=== PATIENT | female | born 2000 | race African-American/Black ===

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

== ENCOUNTER 2020-01-29 17:23 | Emergency (ER) | payer MEDICAID ==
[~2020-01-29] VITALS: Ht 165.1 cm; Wt 84.4 kg
[2020-01-29 17:30] VITALS: BP 102/66
[2020-01-29] MEDS ORDERED: cefTRIAXone 1 GM in NS 55 ML IVPB ONE (17:45)
[2020-01-29] MEDS ORDERED: Omnipaque-300 100ml vial INJ PRN (17:45)
[2020-01-29] MEDS ORDERED: Doxycycline Monohydrate 100mg ORAL ONE (18:00)
[2020-01-29 18:04] LABS: BASOPHILS % (AUTO) 0.7 % (0.0-2.0); EOSINOPHILS % (AUTO) 1.9 % (0.0-3.0); HEMATOCRIT 38.4 % (37.0-47.0); LYMPHOCYTES % (AUTO) 19.4 % (20.0-45.0); MEAN CORPUSCULAR VOLUME 88 FL (80-99); PLATELET COUNT 198 K/UL (150-450); RED BLOOD COUNT 4.38 M/UL (4.20-5.40); RED CELL DISTRIBUTION WIDTH 13.1 % (11.6-14.8); WHITE BLOOD COUNT 11.2 K/UL (4.8-10.8)
[2020-01-29 18:08] LABS: APPEARANCE,URINE SLIGHTLY CLOUDY; BILIRUBIN, URINE NEGATIVE (NEGATIVE); COLOR,URINE PALE YELLOW; GLUCOSE, URINE (UA) NEGATIVE (NEGATIVE); KETONES,URINE NEGATIVE (NEGATIVE); LEUKOCYTE ESTERASE ,URINE 3+ (NEGATIVE); NITRITE,URINE NEGATIVE (NEGATIVE); PH,URINE 7 (4.5-8.0); PROTEIN,URINE NEGATIVE (NEGATIVE); UROBILINOGEN,URINE NORMAL MG/DL (0.0-1.0)
[2020-01-29 18:18] LABS: ANION GAP 9 mmol/L (5-15); BLOOD UREA NITROGEN 6 mg/dL (7-18); CALCIUM 8.8 MG/DL (8.5-10.1); CARBON DIOXIDE 27 MMOL/L (21-32); CHLORIDE 105 MMOL/L (98-107); CREATININE 0.8 MG/DL (0.55-1.30); POTASSIUM 3.9 MMOL/L (3.5-5.1); SODIUM 140 MMOL/L (136-145)
[2020-01-29 18:23] LABS: ALANINE AMINOTRANSFERASE 23 U/L (12-78); ALBUMIN 3.8 G/DL (3.4-5.0); ALBUMIN/GLOBULIN RATIO 1.1 (1.0-2.7); ALKALINE PHOSPHATASE 75 U/L (46-116); ASPARTATE AMINO TRANSFERASE 21 U/L (15-37); BILIRUBIN,TOTAL 0.7 MG/DL (0.2-1.0)
--- NOTE | 2020-01-29 18:26 | Emergency Room Report ---
History of Present Illness General Chief Complaint: Skin Rash/Abscess Source: Patient Present Illness HPI 20-year-old female with no significant past medical history here complaining of 2 days of painful rash in the right inguinal fold. Denies any fall or injury. Denies any pus drainage. Denies any history of hernia. Denies any fever and chills, diffuse abdominal pain, nausea vomiting, urinary frequency and urgency. Reports that she is sexually active and was last checked 2 weeks ago. Denies any vaginal discharge. Denies any pelvic pain. Patient was seen at the pain clinic and was sent to the ER due to cellulitis the area however no cellulitis noted. Lymphadenopathy noted in the area. Denies . 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 Patient History Past Medical History: see triage record Past Surgical History: none Pertinent Family History: none Last Menstrual Period: Now: No Immunizations: UTD Reviewed Nursing Documentation: PMH: Agreed; PSxH: Agreed Nursing Documentation-PMH Past Medical History: No History, Except For Hx Asthma: Yes Review of Systems All Other Systems: negative except mentioned in HPI Physical Exam Vital Signs Date Time Temp Pulse Resp B/P (MAP) Pulse Ox O2 Delivery O2 Flow Rate FiO2 01/29/20 17:25 98.2 63 20 96/67 (77) 99 Room Air Sp02 EP Interpretation: reviewed, normal General Appearance: no apparent distress, alert, GCS 15, non-toxic Head: normocephalic, atraumatic Eyes: bilateral eye normal inspection, bilateral eye PERRL ENT: hearing grossly normal, normal pharynx, no angioedema, normal voice Neck: full range of motion, supple/symm/no masses Respiratory: chest non-tender, lungs clear, normal breath sounds, no rhonchi, speaking full sentences Cardiovascular #1: regular rate, rhythm, no edema Cardiovascular #2: 2+ femoral (R), 2+ femoral (L) Gastrointestinal: normal bowel sounds, non tender, soft, non-distended, no guarding, no rebound, other - Lymphadenopathy right inguinal fold Rectal: deferred Genitourinary: no CVA tenderness Musculoskeletal: back normal Neurologic: alert, motor strength/tone normal, oriented x3, sensory intact, responsive, speech normal Psychiatric: normal inspection, judgement/insight normal Skin: no rash Lymphatic: inguinal node tender (R) Procedures Incision and Drainage Incision and Drainage : Consent: Verbal Site: right inguinal Blade Size: 11 I & D Procedure: betadine prep Wound Location: pelvis - right inguinal Wound's Depth, Shape: superficial Wound Length (cm): 2 Wound Explored: clean Anesthesia: 1% Lidocaine Volume Anesthetic (ccs): 10 Splint Applied?: No Sling Applied?: No Patient Tolerated: Well Complications: None Ultrasound Ultrasound : Consent: Verbal Ultrasound: normal Patient Tolerated: Well Complications: None Progress Use of this left femoral artery and vein in order to avoid that area from cutting Medical Decision Making PA Attestation All my diagnosis and treatment plans were reviewed ad discussed with my supervising physician Dr. Hudson Diagnostic Impression: Primary Impression: Inguinal abscess ER Course 20-year-old female with no significant past medical history here complaining of 2 days of painful rash in the right inguinal fold. Denies any fall or injury. Denies any pus drainage. Denies any history of hernia. Denies any fever and chills, diffuse abdominal pain, nausea vomiting, urinary frequency and urgency. Reports that she is sexually active and was last checked 2 weeks ago. Denies any vaginal discharge. Denies any pelvic pain. Patient was seen at the pain clinic and was sent to the ER due to cellulitis the area however no cellulitis noted. Lymphadenopathy noted in the area. Denies . No incarcerated nonreducible hernia noted upon palpation of the affected area Ddx considered but are not limited to : Cellulitis, LGV,, PID, hidradenitis suppurativa, superficial infection, abscess Vital signs: are WNL, pt. is afebrile H&PE are most consistent with: Abscess right inguinal ORDERS: CT pelvis with contrast, CBC, CMP, UA, urine test, PT and PTT , lactic acid, keflex, Motrin, Bactrim ED INTERVENTIONS: Rocephin, doxycycline DISCHARGE: At this time pt. is stable for d/c to home. Will provide printed patient care instructions, and any necessary prescriptions. Care plan and follow up instructions have been discussed with the patient prior to discharge. Take medication as directed, follow primary care provider, avoid irritating area, if worsening symptoms return to the emergency room Patient developed for the. Was very scared area patient asked if she could just be discharged with antibiotics and follow-up in 2 to 3 days. At this time patient was able to get minimal pus out patient would not really allow me to make a deeper cut and how to bandage the. Asked patient to start taking the antibiotics right away and return to the emergency room if worsening symptoms. CT/MRI/US Diagnostic Results CT/MRI/US Diagnostic Results : Imaging Test Ordered: CT pelvis with contrast Impression FINDINGS: Bowel: Unremarkable. No obstruction. No mucosal thickening. Appendix: No findings to suggest acute appendicitis. Intraperitoneal space: Trace free fluid in the pelvis, likely physiologic. No free air. Bladder: Unremarkable. No mass. Reproductive: Probable cyst within the right ovary measuring up to 3 cm. Bones/joints: No acute fracture. No dislocation. Soft tissues: Moderate edema with tiny fluid collection measured to 16 mm seen within the soft tissues of the right groin/medial upper thigh suggesting an inflammatory or infectious process to include developing abscess. No soft tissue gas. Vasculature: Unremarkable. No lower abdominal aortic aneurysm. Lymph nodes: Unremarkable. IMPRESSION: 1. Moderate edema with tiny fluid collection measuring up to 16 mm seen within the soft tissues of the right groin/medial upper thigh suggesting an inflammatory or infectious process to include developing abscess. No soft tissue gas. 2. Probable cyst within the right ovary measuring up to 3 cm. Last Vital Signs Date Time Temp Pulse Resp B/P (MAP) Pulse Ox O2 Delivery O2 Flow Rate FiO2 01/29/20 17:25 98.2 63 20 96/67 (77) 99 Room Air Disposition: HOME, SELF-CARE Condition: Stable Scripts Ibuprofen* (MOTRIN*) 600 Mg Tablet 600 MG ORAL Q8H PRN for FOR PAIN, #30 TAB 0 Refills Prov: Theresa Goodwin 01/29/20 Cephalexin* (KEFLEX*) 500 Mg Capsule 500 MG ORAL EVERY 6 HOURS for 7 Days, #28 CAP Prov: Theresa Goodwin 01/29/20 Referrals: NOT CHOSEN IPA/,REFERRING (PCP) Patient Instructions: Abscess Additional Instructions: Take medication as directed, follow-up with your primary care provider, worsening symptoms return to the emergency room. Wound check in 2 to 3 days Theresa Goodwin Jan 29, 2020 18:26
--- NOTE | 2020-01-29 18:56 | Diagnostic Imaging Report ---
EXAM: CT Pelvis With Intravenous Contrast CLINICAL HISTORY: PAIN TECHNIQUE: Axial computed tomography images of the pelvis with intravenous contrast. CTDI is 8.9 mGy and DLP is 375.5 mGy-cm. One or more of the following dose reduction techniques were used: automated exposure control, adjustment of the mA and/or kV according to patient size, use of iterative reconstruction technique. COMPARISON: No relevant prior studies available. FINDINGS: Bowel: Unremarkable. No obstruction. No mucosal thickening. Appendix: No findings to suggest acute appendicitis. Intraperitoneal space: Trace free fluid in the pelvis, likely physiologic. No free air. Bladder: Unremarkable. No mass. Reproductive: Probable cyst within the right ovary measuring up to 3 cm. Bones/joints: No acute fracture. No dislocation. Soft tissues: Moderate edema with tiny fluid collection measured to 16 mm seen within the soft tissues of the right groin/medial upper thigh suggesting an inflammatory or infectious process to include developing abscess. No soft tissue gas. Vasculature: Unremarkable. No lower abdominal aortic aneurysm. Lymph nodes: Unremarkable. IMPRESSION: 1. Moderate edema with tiny fluid collection measuring up to 16 mm seen within the soft tissues of the right groin/medial upper thigh suggesting an inflammatory or infectious process to include developing abscess. No soft tissue gas. 2. Probable cyst within the right ovary measuring up to 3 cm.
[2020-01-29] MEDS ORDERED: Lidocaine 1% Plain 30 ml INJ ONE ×2 (19:12→19:30)
[2020-01-29] MEDS ORDERED: Lidocaine 1% 10mg/ml/EPI 0.01mg/ml 30ml INJ ONE (19:15)
[2020-01-29] MEDS ORDERED: CEPHALEXIN500 MG ORAL (19:29)
[2020-01-29] MEDS ORDERED: IBUPROFEN600 M1 ORAL (19:29)
[2020-01-29] MEDS ORDERED: BACTRIM DS TAB1 EAC1 ORAL (19:49)
[2020-01-29 20:00] VITALS: BP 110/72
== END 2020-01-29 20:00 | disposition home or self-care (01) ==
LOC: EMR 17:47
DX: L02.214 Cutaneous abscess of groin (principal); R59.1 Generalized enlarged lymph nodes
CPT/HCPCS: 10060; 36415; 72193; 80053; 81003; 81025; 83605; 85025; 85610; 85730; 87086; 96365; J0696; J2001; Q9967; Z7502; 99284

== ENCOUNTER 2020-06-09 02:10 | Emergency (ER) | payer MEDICAID ==
[~2020-06-09] VITALS: Ht 167.6 cm; Wt 83.9 kg
[~2020-06-09 02:10] MED LIST changes: +BACTRIM DS TAB1 EAC1 ORAL; +IBUPROFEN600 M1 ORAL
[2020-06-09 02:20] VITALS: BP 103/67
--- NOTE | 2020-06-09 02:20 | NUR ---
ED Nurse Note: Patient walked into ED from home for c/o sore throat, congestion, cough x 3 days. She denies fever, SOB, chest pain, abdominal pain. Breathing is normal and unlabored at this time. AAOX4. Patient also expresses concern that she burned her throat while drinking hot tea for control of symptoms.
--- NOTE | 2020-06-09 02:31 | Emergency Room Report ---
History of Present Illness General Chief Complaint: Sore Throat Source: Patient Present Illness HPI 20-year-old -[place] female with no prior medical history presents with complaint of throat pain x3 days. Patient states that 2 weeks ago she received a dental extraction and was prescribed amoxicillin which she finished 4 days ago. She started to have sinus congestion and cough symptoms for the past 3 days and was self-medicating with hot tea and honey at home. She states she went to go drink tea 3 days ago and is concerned it burned the back of her throat. Denies difficulty swallowing, hoarse voice, stridor, drooling, neck pain, fever, hemoptysis, chest pain, abdominal pain, nausea, headache, photophobia or any other symptoms. Last menstrual period was 10 days ago. 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 Denies sick contacts or recent travel. The patient's symptoms were gradual onset, severity was moderate, duration since 3 days. Quality: Burning Past medical history: Denies Past surgical history: Denies Smoking: Denies Alcohol use: Occasional on the weekends Drug use: Marijuana occasional Review of systems: CONST: No fevers or chills, No night sweats PULMONARY: No productive cough, No shortness of breath CARDIAC: No chest pain, No palpitations GI: No vomiting, No diarrhea , No melena_or_BRBPR : No dysuria, No hematuria, No discharge NEURO: No new_focal_weakness_or_numbness, No confusion, No vision changes 14 point Review of Systems is otherwise negative except per HPI Physical Exam: GENERAL: Awake_alert_ nontoxic, no acute distress Spo2 98% on RA -normal EYES: Extraocular muscles are intact. Conjunctivae clear. Lids without swelling ENT: External nose and ear normal_in_appearance. Oropharynx clear. Head_atraumatic, Moist_oral_mucosa Superficial blisters to the right posterior soft palate. Uvula is midline. No tonsillar exudates or swelling. No hoarse voice. Tolerating oral secretions. No drooling. No stridor NECK: No JVD. No meningismus. No thyromegaly. Supple. Trachea midline RESP: Normal respiratory effort. Symmetric rise. No stridor. Clear_to_auscultation_No_rales_No_wheezes CARDIAC: Regular rate and regular rhytm. No_significant pedal edema. ABDOMEN: Soft. Nondistended. Nontender_No_rebound_or_guarding. MSK: Normal muscle tone, without rigidity. Extremities without asymmetric deformity or swelling. SKIN: Warm and dry. No visible cyanosis or pallor NEUROLOGIC: Alert, oriented x3. Motor_and_sensation_grossly_intact. No truncal ataxia. Gait_normal Psych: Normal mood and affect, normal judgment and insight - COORDINATION OF CARE Case was discussed with: Patient Medical Decision Making/Plan: Differential diagnosis: Upper respiratory infection versus throat burn versus postnasal drip versus pharyngitis versus tonsillitis, doubt deep space neck in fection Patient is afebrile and well-appearing. She is noted to have superficial blistering to the right posterior soft palate. No stridor, hoarse voice, or respiratory distress noted. No submandibular cellulitis or swelling. Airway is intact. Patient able to tolerate water PO challenge No antibiotics indicated. She recently just finished a 10-day course of amoxicillin. Offered off work note, however patient declined. Advised patient to take greater care when drinking hot tea so as to not re-burn/blister herself Advise follow-up with primary care doctor in 2 to 3 days. 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 COVID-19 Screening: Negative COVID-19 COVID-19 Testing Source: [facility] Patient History Last Menstrual Period: 06/03/20 Now: No : 0 Para: 0 Nursing Documentation-[facility] Past Medical History: No History, Except For Hx Asthma: Yes Physical Exam Vital Signs Date Time Temp Pulse Resp B/P (MAP) Pulse Ox O2 Delivery O2 Flow Rate FiO2 06/09/20 02:17 98.4 90 18 103/67 (79) 98 Room Air Sp02 EP Interpretation: reviewed, normal Medical Decision Making Diagnostic Impression: Primary Impression: Throat pain in adult Last Vital Signs Date Time Temp Pulse Resp B/P (MAP) Pulse Ox O2 Delivery O2 Flow Rate FiO2 06/09/20 02:17 98.4 90 18 103/67 (79) 98 Room Air Disposition: HOME, SELF-CARE Admit Decision Time: 02:31 Condition: Stable Referrals: NOT CHOSEN IPA/,REFERRING (PCP) Patient Instructions: Sore Throat Additional Instructions: 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 Follow-up with your doctor sooner if your condition requires a more timely clinical reevaluation. Return to the emergency department immediately if you feel that your condition is worsening or if you have any new or concerning symptoms. Review your discharge instructions and take any prescriptions given as instructed. [facility] PROVIDES FREE OR LOW-COST HEALTH SERVICES TO PEOPLE WHO CAN SHOW PROOF THAT THEY LIVE IN [facility]. TO FIND MORE CLINICS PARTNERED WITH [facility] TO PROVIDE SERVICE, PLEASE CALL . Bernadette Ferris D.O. Jun 09, 2020 02:31
[2020-06-09 02:35] VITALS: BP 104/65
--- NOTE | 2020-06-09 02:35 | NUR ---
ER DISCHARGE NOTE: Patient is cleared to be discharged per ERMD, pt is aox4, on room air, with stable vital signs. pt was given dc instructions, pt was able to verbalize understanding, pt id band removed. pt is able to ambulate with steady gait. pt took all belongings.
== END 2020-06-09 02:35 | disposition home or self-care (01) ==
LOC: EMR 02:23
DX: R07.0 Pain in throat (principal); R05 Cough
CPT/HCPCS: 99281